=== PATIENT | female | born 1990 | race Caucasian/White ===

== ENCOUNTER 2024-03-21 09:14 | Emergency (ER) | payer SELFPAY ==
[2024-03-21 09:16] VITALS: BP 112/73
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
[2024-03-21 13:38] VITALS: BP 115/66
== END 2024-03-21 13:39 | disposition home or self-care (01) ==
LOC: EMR 09:14
PROVIDERS: EMERGENCY PHYSICIAN Emergency Medicine
DX: O99.891 Other specified diseases and conditions complicating pregnancy (principal); V43.52XA Car driver injured in collision with other type car in traffic accident, initial encounter; Y92.410 Unspecified street and highway as the place of occurrence of the external cause; Z3A.31 31 weeks gestation of pregnancy
CPT/HCPCS: 99284; 76805